=== PATIENT | male | born 1955 | race Caucasian/White ===

== ENCOUNTER 2022-01-31 18:36 | Emergency (ER) | payer OTHER ==
[~2022-01-31] VITALS: Ht 177.8 cm; Wt 136.9 kg
[~2022-01-31 18:36] MED LIST: ACETAMINOPHEN500 MG PO; ALLER-FLO15.8 ML; ASPIRIN81 MG PO; BASAGLAR K100 UNIT/1 SUB-Q; BRAIN MIGHT-DH1 EACH PO; CYMBALTA30 MG PO; IBUPROFEN600 MG PO; METFORMIN HCL1000 M1 PO; MOVE FREE ULTR1 EAC2 PO; NOVOLOG100 UNIT/2; OXYCODON-ACETA1 EAC2 PO; VIT C-ROSE HIP500 MG PO; ZOCOR40 MG PO
[2022-01-31] MEDS ORDERED: HYDROCODON-ACE1 EA10 PO (22:38)
== END 2022-01-31 23:04 | disposition home or self-care (01) ==
LOC: ED 18:36
DX: S39.011A Strain of muscle, fascia and tendon of abdomen, initial encounter (principal); E11.9 Type 2 diabetes mellitus without complications; Z88.8 Allergy status to other drugs, medicaments and biological substances; Z79.84 Long term (current) use of oral hypoglycemic drugs; Z79.4 Long term (current) use of insulin; Z79.899 Other long term (current) drug therapy; X58.XXXA Exposure to other specified factors, initial encounter
CPT/HCPCS: 36415; 73700; 74176; 80053; 81001; 85025; 96374; 96375; 99284-25; A9270; J1885; J2270; J2405

== ENCOUNTER 2024-12-31 13:43 | Emergency (ER) | payer OTHER ==
[~2024-12-31] VITALS: Ht 177.8 cm; Wt 125.6 kg
[~2024-12-31 13:43] MED LIST changes: +HYDROCODON-ACE1 EA10 PO
[2024-12-31] MEDS ORDERED: JARDIANCE10 MG PO (13:59)
[2024-12-31] MEDS ORDERED: LANTUS SOL100 UNIT/1 SUB-Q (14:00)
[2024-12-31] MEDS ORDERED: MORPHINE SULFATE 4 MG/ML VIAL IV ONE (14:15)
[2024-12-31] MEDS ORDERED: ondansetron HCL 4 MG/2 ML VIAL IV ONE (14:15)
[2024-12-31] MEDS ORDERED: KETOROLAC TROMETHAMINE 30 MG/ML VIAL IV ONE (14:15)
[2024-12-31 14:16] LABS: BASOPHILS 0.8 % (0-2); HEMATOCRIT 44.2 % (35.0-50.0); HEMOGLOBIN 15.1 g/dL (12.0-18.0); LYMPHOCYTES 15.8 % (24-44); MCH 29.8 (27-36); MCHC 34.1 g/dl (30-36); MCV 87.2 fl (81-99); MONOCYTES 9.7 % (0-12); NEUTROPHILS 70.7 % (39-80); PLATELET COUNT 250 K/uL (140-440); RBC 5.06 M/ul (4.3-5.7)
[2024-12-31 14:31] LABS: ALBUMIN 3.6 g/dL (3.4-5.0); ALBUMIN/GLOBULIN RATIO 0.95 (1.1-2.4); ANION GAP 12.9 (7-21); BILIRUBIN, TOTAL 0.5 mg/dL (0.2-1.0); BUN/CREATININE RATIO 14.73 (6.0-28.6); CALCIUM 8.9 mg/dL (8.5-10.1); CREATININE, SERUM 0.95 mg/dL (0.70-1.30); POTASSIUM 3.9 mmol/L (3.5-5.1); PROTEIN, TOTAL 7.4 g/dL (6.4-8.2)
[2024-12-31 15:22] LABS: BILIRUBIN, URINE NEGATIVE (negative); BLOOD/HGB, URINE NEGATIVE (Negative); KETONE, URINE NEGATIVE (Negative); LEUK ESTERASE, URINE NEGATIVE (negative); NITRITE, URINE NEGATIVE (negative)
[2024-12-31 15:28] LABS: BACTERIA, URINE NONE SEEN /hpf (negative); CASTS, URINE NONE SEEN \\lpf; COLLECTION TYPE, URINE CLEAN CATCH; CRYSTALS, URINE NONE SEEN (0-1+); EPITHELIAL CELLS, URINE SQUAMOUS 1+ /lpf (0-1+); RED BLOOD CELLS, URINE 0-1 /hpf (0-5); REFLEX CULTURE, URINE No (No); WHITE BLOOD CELLS, URINE 0-1 /HPF (0-5)
[2024-12-31 16:42] VITALS: BP 104/67
[2024-12-31] MEDS ORDERED: HYDROCODON-ACE1 EA10 PO (16:43)
[2024-12-31] MEDS ORDERED: HYDROCODONE BIT/ACETAMINOPHEN 5/325 MG 1 TAB HOME.PACK PO ONE (16:45)
[2024-12-31] MEDS ORDERED: ONDANSETRON 4 MG HOME.PACK SL ONE (16:45)
== END 2024-12-31 16:57 | disposition home or self-care (01) ==
LOC: ED 13:43
PROVIDERS: Emergency Medicine
DX: R10.11 Right upper quadrant pain (principal); E11.9 Type 2 diabetes mellitus without complications
CPT/HCPCS: 36415; 74176; 80053; 81001; 83690; 85025; 96374; 96375; 99284-25; A9270; J1885; J2270; J2405